=== PATIENT | male | born 1940 | race Caucasian/White ===

== ENCOUNTER 2017-08-19 09:12 | Emergency (ER) | payer OTHER ==
[2017-08-19] MEDS ORDERED: FENTANYL CITR 100 MCG/2 ML ONE (11:59)
--- NOTE | 2017-08-19 12:16 | EKG ---
Test Date: 2017-08-19 Test Time: 12:12:50 Lead Auditor: MINNA MEASUREMENT RESULTS: Intervals: Rate: 64 CA: 162 QRSD: 96 QT: 392 QTc: 404 [place]: P: 36 CA: 162 QRS: 61 T: 54 INTERPRETIVE STATEMENTS: Normal sinus rhythm Normal ECG No previous ECG available for comparison Electronically Signed On 08-19-17 12:15:44 CDT by Jose Omer
[2017-08-19 12:33] LABS: Potassium 4.9 mEq/L (3.6-5.0)
[2017-08-19 12:39] LABS: Albumin 4.8 g/dL (3.2-5.5); Bilirubin Direct 0.1 mg/dL (0-0.2); Bilirubin Total 0.7 mg/dL (0.3-1.2); Protein, Total 7.8 g/dL (6.0-8.3)
[2017-08-19 12:43] LABS: CKMB Creatine Kinase MB 5.6 ng/ml (0.3-4.0)
[2017-08-19 12:52] LABS: Absolute Lymphocytes (CBC) 1.8 K/uL (0.7-4.9); Absolute Monocytes 0.5 K/uL (0.1-1.3); Absolute Neutrophil 4.3 K/uL (1.8-8.0); Basophils % 0.6 % (0-1.3); Hematocrit 46.9 % (39.6-49.0); Lymphocytes % 26.4 % (15.3-44.8); MCH 28.9 pg (27.0-35.0); MCV 86.5 fL (80-100); MPV 7.4 fL (7.6-11.3); Monocytes % 7.9 % (3.3-12.3); RBC Red Blood Cell Count 5.43 M/uL (4.33-5.43)
[2017-08-19] MEDS ORDERED: KETOROLAC 30 MG/ML INJ ONE (13:12)
[2017-08-19] MEDS ORDERED: DIAZEPAM 10 MG/2 ML INJ SYRINGE ONE (13:19)
--- NOTE | 2017-08-19 13:43 | RAD REPORT ---
EXAM DESCRIPTION: CT - Chest Abd Pelvis Wo Dago - 08/19/2017 12:27 pm CLINICAL HISTORY: Chest and abdominal pain. COMPARISON: None. TECHNIQUE: Computed axial tomography of the chest, abdomen and pelvis was obtained. Contrast was not requested. The evaluation of the mediastinum, katie, vessels, solid organs and bowel is limited secondary to lack of contrast administration. A pleural effusion is not present. A pericardial effusion is not seen. Coronary arterial calcificatio ns are seen. A few areas of subsegmental atelectasis are present within the lung bases. A small hiatal hernia is present. The liver, spleen, pancreas and adrenals appear grossly normal. Gallstones are present without gallbladder wall thickening. Bilateral cystic masses within the kidneys are noted. The largest is present within the left kidney m easuring 7.8 cm. A diverticula stem from the colon without evidence of diverticulitis. The appendix i s normal. Spondylosis involves lumbar spine resulting spinal stenosis. Small inguinal hernias contain fat. IMPRESSION: 1. A few areas of subsegmental atelectasis within the lung bases. 2. Cholelithiasis without evidence of cholecystitis. 3. 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 4. Cystic renal masses probably are benign. It is recommended that the patient have a follow-up ultra sound in 3 months for re-evaluation.
--- NOTE | 2017-08-19 14:07 | EDPHYS ---
Physician Documentation [facility] Name: Ruy Allison Age: 77 yrs Sex: Male : 1940 Arrival Date: 08/19/2017 Time: 09:15 Bed 20 Private MD: ED Physician Enrique Nash HPI: 08/19 10:46 This 77 yrs old Male presents to ER via Wheelchair with complaints of Back cp Pain. 10:46 The patient presents with pain that is chronic, with no known mechanism of injury. The cp symptoms are located in the low back. Onset: The symptoms/episode began/occurred gradually, and became worse yesterday. The pain radiates to the right groin. 10:46 Associated signs and symptoms: Pertinent positives: difficulty walking, Pertinent cp negatives: abdominal pain, chest pain, constipation, dysuria, fever, incontinence, numbness, urinary retention. 10:46 Patient reports having MRI performed at [facility] last week that showed spinal cp stenosis. Patient reports having appointment with neurology in September, but pain became worse this morning. Pain causing difficulty walking. Patient took prescribed hydrocodone 10 mg w/o relief. 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 - Social history:: Smoking status: Patient/guardian denies using tobacco. ROS: 11:00 Constitutional: Negative for body aches, chills, fever, poor PO intake. cp 11:00 Eyes: Negative for injury, pain, redness, and discharge. cp 11:00 ENT: Negative for drainage from ear(s), ear pain, sore throat, difficulty swallowing, difficulty handling secretions. 11:00 Cardiovascular: Negative for chest pain, edema, palpitations. 11:00 Respiratory: Negative for cough, shortness of breath, wheezing. 11:00 Abdomen/GI: Negative for abdominal pain, nausea, vomiting, and diarrhea, black/tarry stool, rectal bleeding, bowel incontinence. 11:00 Back: Positive for pain at rest, pain with movement, of the low back. 11:00 : Negative for urinary symptoms, difficulty urinating, bladder incontinence. 11:00 MS/extremity: Negative for injury or acute deformity, decreased range of motion, pain, paresthesias. 11:00 Skin: Negative for cellulitis, rash. 11:00 Neuro: Negative for headache, numbness, weakness. 11:00 All other systems are negative. Exam: 11:05 Constitutional: The patient appears in no acute distress, alert, awake, cp non-diaphoretic, non-toxic, well developed, well nourished. 11:05 Head/Face: Normocephalic, atraumatic. cp 11:05 Eyes: Periorbital structures: appear normal, Conjunctiva: normal, Lids and lashes: cp appear normal, bilaterally. 11:05 ENT: External ear(s): are unremarkable, Nose: is normal, Mouth: Lips: moist, Oral mucosa: pink and intact, moist, Posterior pharynx: is normal, airway is patent, no erythema, no exudate. 11:05 Neck: ROM/movement: is normal, is supple, without pain, no range of motions limitations, no nuchal rigidity. 11:05 Chest/axilla: Inspection: normal, Palpation: is normal, no crepitus, no tenderness. 11:05 Cardiovascular: Rate: normal, Rhythm: regular. 11:05 Respiratory: the patient does not display signs of respiratory distress, Respirations: cp normal, no use of accessory muscles, no retractions, no splinting, no tachypnea, labored breathing, is not present, Breath sounds: are clear throughout, no decreased breath sounds, no stridor, no wheezing. 11:05 Abdomen/GI: Inspection: abdomen appears normal, Bowel sounds: active, all quadrants, Palpation: abdomen is soft and non-tender, in all quadrants, rebound tenderness, is not appreciated, voluntary guarding, is not appreciated, involuntary guarding, is not appreciated. 11:05 Back: pain, that is severe, of the lumbar area and right low back, ROM is painful, with all movement, Straight leg raises: of both lower extremities does not illicit pain. 11:05 Skin: cellulitis, is not appreciated, no rash present. 11:05 Neuro: Orientation: to person, place \T\ time. Mentation: lucid, able to follow commands, Motor: moves all fours, strength is normal, Sensation: is normal, Deep tendon reflexes are 2+ (normal) in the right patellar, right Achilles, left patellar and left Achilles, Babinski testing is normal. 12:20 ECG was reviewed by the Attending Physician. Vital Signs: 09:36 BP 144 / 84; Pulse 66; Resp 16; Pulse Ox 97% on R/A; Weight 89.36 kg; Height 5 ft. 9 iw in. (175.26 cm); Pain 5/10; 13:40 BP 134 / 87; Pulse 65; Resp 16; Pulse Ox 98% on R/A; Pain 2/10; iw 09:36 Body Mass Index 29.09 (89.36 kg, 175.26 cm) iw MDM: 10:34 Patient medically screened. 14:05 Data reviewed: vital signs, nurses notes, lab test result(s), radiologic studies, CT cp scan, and as a result, I will discharge patient. 08/19 11:40 Order name: CBC with Diff; Complete Time: 13:03 08/19 13:03 Interpretation: Normal except: MPV 7.4. 08/19 11:40 Order name: BMP; Complete Time: 13:03 08/19 13:03 Interpretation: Normal except: NA 134; CL 100; GLUC 128; BUN 22; CRE 1.48; GFR 46. 08/19 11:40 Order name: LFT's; Complete Time: 13:03 08/19 11:45 Order name: Troponin I; Complete Time: 13:03 08/19 11:45 Order name: Ckmb; Complete Time: 13:03 08/19 11:45 Order name: CK; Complete Time: 13:03 08/19 11:45 Order name: EKG; Complete Time: 11:45 08/19 12:11 Order name: CT Chest Abdomen Pelvis W/O Contrast 08/19 14:05 Interpretation: Report reviewed. 08/19 10:49 Order name: IV; Complete Time: 12:13 08/19 11:45 Order name: EKG - Nurse/Tech; Complete Time: 13:02 EC:20 Rate is 64 beats/min. Rhythm is regular. DE interval is normal. QRS interval is normal. cp QT interval is normal. No ST changes noted. Interpreted by me. Reviewed by me. Administered Medications: 12:22 Drug: fentaNYL (PF) 25 mcg Route: IVP; Site: right forearm; iw 12:30 Drug: Diazepam 5 mg Route: IVP; Site: right forearm; iw 14:00 Follow up: Response: No adverse reaction; Pain is decreased iw 12:30 Drug: TORadol 30 mg Route: IVP; Site: right forearm; iw 14:00 Follow up: Response: No adverse reaction; Pain is decreased iw 14:20 Drug: fentaNYL (PF) 25 mcg Route: IVP; Site: right forearm; dm5 14:44 Follow up: Response: No adverse reaction; Pain is decreased iw Disposition: 08/19/17 14:06 Discharged to Home. Impression: Low back pain. - Condition is Stable. - Discharge Instructions: Back Pain, Adult. - Prescriptions for Diazepam 5 mg Oral Tablet - take 1 tablet by ORAL route every 8 hours As needed no driving or operating heavy machinery while taking medication; 20 tablet. Medrol (Frantz) 4 mg Oral Tablets, Dose Pack - take 1 tablet by ORAL route as directed - follow package instructions; 1 packet. - Medication Reconciliation Form, Thank You Letter, Antibiotic Education, Prescription Opioid Use form. - Follow up: Sidney Lane MD; When: 1 - 2 days; Reason: Recheck today's complaints. - Problem is an ongoing problem. - Symptoms have improved. Addendum: 08/21/2017 06:41 Co-signature as Attending Physician, Enrique Nash MD I agree with the assessment and w a plan of care. Signatures: Dispatcher [employer] [facility] Ruthie Dong RN RN dm5 Jia Anthony RN RN iw Romulo Azar PA PA cp Appiah, William, MD MD ks Corrections: (The following items were deleted from the chart) 08/19 11:35 10:49 Lumbar Spine Wo Con+MRI.RAD.BRZ ordered. EDMO EDMS 12:06 11:40 Lumbar Spine Wo Con+MRI.RAD.BRZ ordered. EDMO EDMS 14:46 14:06 08/19/2017 14:06 Discharged to Home. Impression: Low back pain. Condition is iw Stable. Forms are Medication Reconciliation Form, Thank You Letter, Antibiotic Education, Prescription Opioid Use. Follow up: Sidney Lane; When: 1 - 2 days; Reason: Recheck today's complaints. Problem is an ongoing problem. Symptoms have improved. cp
--- NOTE | 2017-08-19 14:07 | ER ---
Nurse's Notes [facility] Name: Ruy Allison Age: 77 yrs Sex: Male : 1940 Arrival Date: 08/19/2017 Time: 09:15 Bed 20 Private MD: Diagnosis: Low back pain Presentation: 08/19 09:33 Presenting complaint: Child states: has had issues with back, had MRI done last week, iw dx with spinal stenosis, woke up with extreme pain this morning, 10/10, taking hydrocodone with some relief but not resolved, c/o muscle spasms to right lower back. Transition of care: patient was not received from another setting of care. Onset of symptoms was August 19, 2017. Initial Sepsis Screen: Does the patient meet any 2 criteria? No. Patient's initial sepsis screen is negative. Does the patient have a suspected source of infection? No. Patient's initial sepsis screen is negative. Care prior to arrival: None. 09:33 Method Of Arrival: Wheelchair iw 09:33 Acuity: JR 3 iw Triage Assessment: 14:44 General: Appears. 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 - Social history:: Smoking status: Patient/guardian denies using tobacco. Screenin:02 Abuse screen: Denies threats or abuse. Nutritional screening: No deficits noted. em Tuberculosis screening: No symptoms or risk factors identified. Fall Risk None identified. Assessment: 13:40 General: Appears in no apparent distress. Behavior is calm, cooperative. Pain: iw Complains of pain in back. Neuro: Level of Consciousness is awake, alert, obeys commands, Oriented to person, place, time, Full function. Cardiovascular: Patient's skin is warm and dry. Respiratory: Respiratory effort is even, unlabored, Respiratory pattern is regular. GI: Abdomen is non-distended. Derm: Skin is pink, warm \T\ dry. normal. Musculoskeletal: Range of motion: intact in all extremities, Reports pain in back. 14:40 Reassessment: Patient appears in no apparent distress at this time. Patient and/or iw family updated on plan of care and expected duration. Pain level reassessed. Patient is alert, oriented x 3, equal unlabored respirations, skin warm/dry/pink. Patient states feeling better. Patient states symptoms have improved. Vital Signs: 09:36 BP 144 / 84; Pulse 66; Resp 16; Pulse Ox 97% on R/A; Weight 89.36 kg; Height 5 ft. 9 iw in. (175.26 cm); Pain 5/10; 13:40 BP 134 / 87; Pulse 65; Resp 16; Pulse Ox 98% on R/A; Pain 2/10; iw 09:36 Body Mass Index 29.09 (89.36 kg, 175.26 cm) iw ED Course: 09:15 Patient arrived in ED. rg4 09:35 Triage completed. iw 09:36 Arm band placed on. iw 10:30 Romulo Azar PA is PHCP. cp 10:30 Enrique Nash MD is Attending Physician. cp 10:50 Adarsh Reilly LVN is Primary Nurse. em 12:14 Inserted saline lock: 20 gauge in right antecubital area, using aseptic technique. mw1 12:24 CT completed. Patient tolerated procedure well. Patient moved to CT via wheelchair. sj Patient moved back from CT. 12:27 CT Chest Abdomen Pelvis W/O Contrast In Process Unspecified. EDMS 13:40 Patient has correct armband on for positive identification. iw 14:[address] MD is Referral Physician. cp 14:40 No provider procedures requiring assistance completed. IV discontinued, intact, iw bleeding controlled, No redness/swelling at site. Pressure dressing applied. Administered Medications: 12:22 Drug: fentaNYL (PF) 25 mcg Route: IVP; Site: right forearm; iw 12:30 Drug: Diazepam 5 mg Route: IVP; Site: right forearm; iw 14:00 Follow up: Response: No adverse reaction; Pain is decreased iw 12:30 Drug: TORadol 30 mg Route: IVP; Site: right forearm; iw 14:00 Follow up: Response: No adverse reaction; Pain is decreased iw 14:20 Drug: fentaNYL (PF) 25 mcg Route: IVP; Site: right forearm; dm5 14:44 Follow up: Response: No adverse reaction; Pain is decreased iw Outcome: 14:06 Discharge ordered by . cp 14:44 Discharged to home via wheelchair, with family. iw 14:44 Condition: good 14:44 Discharge instructions given to patient, family, Instructed on discharge instructions, follow up and referral plans. medication usage, Demonstrated understanding of instructions, follow-up care, medications, Prescriptions given X 1. 14:46 Patient left the ED. iw Signatures: Dispatcher [employer] Ruthie Peña, STEPHANE RN dmMiracle Robin Edgar, DEHYDRATOR TENDER DEHYDRATOR TENDER Jia Cabrera RN RN Romulo Dorado PA PA cp Garcia, Rubi 4 Ramiro Parekh 1
== END 2017-08-19 14:46 | disposition home or self-care (01) ==
LOC: ER 09:12
DX: M54.5 Low back pain (principal); I10 Essential (primary) hypertension; Z95.1 Presence of aortocoronary bypass graft; Z88.8 Allergy status to other drugs, medicaments and biological substances
CPT/HCPCS: 36415; 71250; 74176; 80048; 80076; 82550; 82553; 84484; 85025; 93005; J3010; J3360; 96374; 96375; 99284

== ENCOUNTER → 2022-09-08 | Day surgery (SDC) | payer OTHER ==
[~2022-09-08] MED LIST: ATROPINE SULF 1 MG/10 ML SYR IV ONE; FLUMAZENIL 0.1 MG/ML (5 mL VIAL) IV ONE; LIDOCAINE VISCOUS 2% SOLN 15 ML UDC ONE; MIDAZOLAM HCL 10 ML ONE; NA CHLORIDE 0.9% 500 ML ONE; PHENOL 1.4% ORAL SPRAY 180ML ONE
--- NOTE | 2022-09-09 07:37 | TEE ---
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 TRANSESOPHAGEAL ECHOCARDIOGRAM PROBE WAS INSERTED WITHOUT DIFFICULTY 2. WATCHMAN IS SEATED WELL, NO LEAK, NO THROMBUS 3. NORMAL LEFT VENTRICULAR EJECTION FRACTION 55-60% TECHNOLOGIST: TEN PARK
--- NOTE | 2022-09-10 14:46 | OP ---
Date of Procedure: 09/08/2022 Surgeon: TIFFANIE TAYLOR Procedure: Transesophageal echocardiogram. Indications: Atrial fibrillation. Description Of Procedure: After risks, benefits, alternatives were explained, the patient agreed to procedure and signed informed consent. The patient was brought into the OR room and then after prope r time-out, we numbed the back of throat and then the ULISES probe was inserted without difficulty. ULISES was performed and the probe was removed without complication. Conclusion: Successful transesophageal echocardiogram. /KRISH Voice ID: [id number] Report ID: [id number]
== END ==
LOC: EKG 06:30
PROVIDERS: ATTEND Internal Medicine
DX: I48.20 Chronic atrial fibrillation, unspecified (principal); Z98.890 Other specified postprocedural states; Z79.899 Other long term (current) drug therapy; Z88.8 Allergy status to other drugs, medicaments and biological substances
CPT/HCPCS: 93312; 92960; J2250; J7040; J0461

== ENCOUNTER 2023-11-24 11:00 | Day surgery (SDC) | payer OTHER ==
[2023-11-23 11:05] LABS: Anion Gap 8.8 mEq/L (5.0-15.0); PT Prothrombin Time 10.8 SECONDS (9.4-12.5); PTT, Activated Partial Thromb 29.7 SECONDS (24.3-36.9); Potassium 4.8 mEq/L (3.5-5.1); Protime INR 0.96
[2023-11-23 11:07] LABS: Absolute Basophils 0.1 K/uL (0-0.5); Absolute Eosinophils 0.1 K/uL (0-0.5); Absolute Lymphocytes (CBC) 1.4 K/uL (0.7-4.9); Absolute Monocytes 0.4 K/uL (0.1-1.3); Absolute Neutrophil 4.2 K/uL (1.8-8.0); Basophils % 0.9 % (0-1.3); Eosinophils % 1.9 % (0-4.4); Hematocrit 42.3 % (39.6-49.0); Hemoglobin 14.2 g/dL (13.6-17.9); Lymphocytes % 23.5 % (15.3-44.8); MCH 31.2 pg (27.0-35.0); MCHC 33.7 g/dL (32.0-36.0); MCV 92.6 fL (80-100); MPV 7.8 fL (7.6-11.3); Monocytes % 5.7 % (3.3-12.3); Nucleated Red Blood Cells % 0.1 % (0-0); Platelets 218 thou/uL (152-406); RBC Red Blood Cell Count 4.57 M/uL (4.33-5.43)
--- NOTE | 2023-11-23 12:18 | RAD REPORT ---
EXAM DESCRIPTION: Óscar Pa And Lat (2 Views)11/23/2023 11:05 am CLINICAL HISTORY: pre op pending carotid angiogram. Hypertension COMPARISON: No comparisons TECHNIQUE: PA and lateral views of the chest. FINDINGS: The lungs are clear. No pneumothorax or effusion. The cardiomediastinal contours are unre markable apart from sequelae of CABG. IMPRESSION: No acute cardiopulmonary process.
[2023-11-24] MEDS ORDERED: NA CHLORIDE 0.9% 500 ML ONE (11:48)
[2023-11-24 12:10] VITALS: TEMP 97.5
[2023-11-24] MEDS ORDERED: HEPA 1000U/500MLS 2,000 UNIT/1,000 ML BAG IV ONE (12:16)
[2023-11-24] MEDS ORDERED: LIDOCAINE 1% 20 ML MDV ONE (12:16)
[2023-11-24] MEDS ORDERED: MIDAZOLAM HCL 2 MG/2 ML INJ ONE (12:17)
[2023-11-24] MEDS ORDERED: NITROGLYCERIN/D5W 50 MG/250 ML BTL IV ONE (12:18)
[2023-11-24] MEDS ORDERED: FENTANYL CITR 100 MCG/2 ML ONE (12:18)
[2023-11-24] MEDS ORDERED: ATROPINE SULF 1 MG/10 ML SYR IV ONE (13:35)
--- NOTE | 2023-11-24 14:05 | OP ---
Date of Procedure: 11/24/2023 Surgeon: TIFFANIE TAYLOR Procedure Performed: Bilateral carotid angiogram. Indication: Carotid stenosis. Access: Right common femoral artery 4-Kosovan, closed with manual pressure. Complications: None. Bleeding: Less than 50 mL. Total Sedation Time: 45 minutes. Description Of Procedure: After risks, benefits, and alternatives were explained, the patient agreed to the procedure and signed informed consent. The patient was brought in cardiac catheterization la boratory, prepped and draped in usual sterile fashion. Then, I accessed right common femoral artery using micropuncture kit, ultrasound guidance, and fluoroscopy, placed 4-Kosovan [place] sheath, took a 4-Kosovan 3DRC catheter into the aortic root, engaged the right carotid artery and the left carotid artery and took standard views and then I removed the catheter and the sheath and manual pressure was used for closure with good hemostasis. Findings: 1.Right common carotid artery is normal. At the bulb, there is about 20% stenosis of the right inte rnal carotid artery and external carotid artery. The right internal carotid artery has 20% stenosis and the right external carotid artery is normal. 2.Left common carotid artery is normal. At the bulb, there is about 60% stenosis extending into the left internal carotid artery and the left external carotid artery is normal. Conclusion: Moderate carotid artery stenosis, especially on the left. Recommendation: Repeat ultrasound in 6 months. /ALEXL Voice ID: [id number] Report ID: [id number]
[2023-11-24 16:35] VITALS: BP 135/68; O2SAT 99
== END 2023-11-24 16:39 | disposition home or self-care (01) ==
LOC: CCL 11:00
PROVIDERS: ATTEND Internal Medicine
DX: I65.23 Occlusion and stenosis of bilateral carotid arteries (principal); I25.10 Atherosclerotic heart disease of native coronary artery without angina pectoris; I34.0 Nonrheumatic mitral (valve) insufficiency; I48.91 Unspecified atrial fibrillation; I10 Essential (primary) hypertension; E11.9 Type 2 diabetes mellitus without complications; Z79.84 Long term (current) use of oral hypoglycemic drugs; Z79.02 Long term (current) use of antithrombotics/antiplatelets; Z79.899 Other long term (current) drug therapy; Z88.8 Allergy status to other drugs, medicaments and biological substances
CPT/HCPCS: 85025; 80048; 36415; 85610; 82947; 85730; 71046; 36222; 76937; C1893; J2001; J2250; J3010; J7040; 99152; J0461